=== PATIENT | male | born 1980 | race Caucasian/White ===

== ENCOUNTER 2019-07-03 18:57 | Outpatient (REF) | payer BC, SELFPAY ==
[2019-07-03 20:34] LABS: ALT 30 U/L (16-63); AST 32 U/L (15-37); Albumin 4.2 g/dL (3.4-5.0); Alkaline Phosphatase 64 U/L (46-116); Anion Gap 12.1 mmol/L (3-11); BUN 10 mg/dL (7-18); Bilirubin, Total 0.5 mg/dL (0.2-1.0); CO2 24.9 mmol/L (21.0-32.0); CREATININE 1.04 mg/dL (0.70-1.30); Calcium 9.3 mg/dL (8.5-10.1); Calculated LDL 84 mg/dL; Chloride 106 mmol/L (98-107); Cholesterol 183 mg/dL (50-200); Glucose 89 mg/dL (70-100); HDL Cholesterol 91 mg/dL (40-60); Potassium 4.3 mmol/L (3.5-5.1); Sodium 143 mmol/L (136-145); Triglyceride 40 mg/dL (30-150)
== END 2019-07-03 19:17 ==
LOC: NCHCN 18:57
PROVIDERS: PCP Physician Assistant Medical; Visit Provider Physician Assistant Medical
DX: E10.9 Type 1 diabetes mellitus without complications (principal)
CPT/HCPCS: 80053; 80061

== ENCOUNTER 2020-06-12 14:22 | Outpatient (REF) | payer BC, SELFPAY ==
[2020-06-16 04:39] LABS: Patient Race White; SARS-CoV-2 RNA Undetected (Undetected); SARS-CoV-2 Specimen Source Nasopharynx
== END 2020-06-12 14:42 ==
LOC: NCHCN 14:22
PROVIDERS: PCP Physician Assistant Medical; Visit Provider Physician Assistant Medical
DX: R50.9 Fever, unspecified (principal)
CPT/HCPCS: U0003

== ENCOUNTER 2020-08-05 17:39 | Outpatient (REF) | payer BC, SELFPAY ==
[2020-08-05 21:19] LABS: ALT 26 U/L (16-63); AST 22 U/L (15-37); Albumin 3.9 g/dL (3.4-5.0); Alkaline Phosphatase 65 U/L (46-116); Anion Gap 8.3 mmol/L (3-11); BUN 15 mg/dL (7-18); Bilirubin, Total 0.4 mg/dL (0.2-1.0); CO2 24.7 mmol/L (21.0-32.0); Calcium 8.9 mg/dL (8.5-10.1); Calculated LDL 126 mg/dL (<100); Chloride 107 mmol/L (98-107); Cholesterol 210 mg/dL (<200); Glucose 149 mg/dL (74-106); HDL Cholesterol 75 mg/dL (40-60); Potassium 4.5 mmol/L (3.5-5.1); Sodium 140 mmol/L (136-145); Total Protein 6.8 g/dL (6.4-8.2); Triglyceride 46 mg/dL (<150)
== END 2020-08-05 17:59 ==
LOC: NCHCN 17:39
PROVIDERS: PCP Physician Assistant Medical; Visit Provider Physician Assistant Medical
DX: E10.9 Type 1 diabetes mellitus without complications (principal)
CPT/HCPCS: 80053; 80061; 83036

== ENCOUNTER 2021-06-16 19:11 | Outpatient (REF) | payer BC, SELFPAY ==
[2021-06-16 21:13] LABS: Hemoglobin A1C 7.3 % (<5.7)
[2021-06-16 21:17] LABS: ALT 21 U/L (16-63); AST 17 U/L (15-37); Alkaline Phosphatase 65 U/L (46-116); Anion Gap 9.1 mmol/L (3-11); BUN 14 mg/dL (7-18); Bilirubin, Total 0.6 mg/dL (0.2-1.0); CO2 26.9 mmol/L (21.0-32.0); Calcium 9.2 mg/dL (8.5-10.1); Calculated LDL 124 mg/dL (<100); Chloride 104 mmol/L (98-107); Cholesterol 204 mg/dL (<200); Glucose 133 mg/dL (74-106); HDL Cholesterol 69 mg/dL (40-60); Potassium 4.4 mmol/L (3.5-5.1); Sodium 140 mmol/L (136-145); Triglyceride 59 mg/dL (<150)
== END 2021-06-16 19:12 | disposition home or self-care (01) ==
LOC: NCHCN 19:11
PROVIDERS: PCP Physician Assistant Medical; Visit Provider Physician Assistant Medical
DX: E10.9 Type 1 diabetes mellitus without complications (principal)
CPT/HCPCS: 80053; 80061; 83036

== ENCOUNTER 2022-05-18 21:41 | Outpatient (REF) | payer BC, SELFPAY ==
[2022-05-18 19:55] LABS: Anion Gap 7.1 mmol/L (3-11); BUN 11 mg/dL (7-18); CO2 27.9 mmol/L (21.0-32.0); CREATININE 1.1 mg/dL (0.70-1.30); Chloride 103 mmol/L (98-107); Estimated GFR 84.89 (mL/min/1.73m2); Glucose 127 mg/dL (74-106); Potassium 4.6 mmol/L (3.5-5.1); Sodium 138 mmol/L (136-145)
[2022-05-18 20:12] LABS: Hemoglobin A1C 6.9 % (<5.7)
== END 2022-05-18 21:42 | disposition home or self-care (01) ==
LOC: NCHCN 21:41
PROVIDERS: PCP Physician Assistant Medical; Visit Provider Physician Assistant Medical
DX: E10.9 Type 1 diabetes mellitus without complications (principal)
CPT/HCPCS: 80048; 83036

== ENCOUNTER 2023-02-22 18:23 | Outpatient (REF) | payer BC, SELFPAY ==
[2023-02-22 20:10] LABS: Hemoglobin A1C 6.7 % (<5.7)
[2023-02-22 20:18] LABS: ALT 24 U/L (16-63); AST 18 U/L (15-37); Albumin 3.9 g/dL (3.4-5.0); Alkaline Phosphatase 83 U/L (46-116); Anion Gap 7.2 mmol/L (3-11); BUN 15 mg/dL (7-18); Bilirubin, Total 0.3 mg/dL (0.2-1.0); CO2 27.8 mmol/L (21.0-32.0); CREATININE 0.9 mg/dL (0.70-1.30); Calcium 9.1 mg/dL (8.5-10.1); Calculated LDL 110 mg/dL (<100); Chloride 108 mmol/L (98-107); Cholesterol 198 mg/dL (<200); Estimated GFR 107.33 (mL/min/1.73m2); Glucose 111 mg/dL (74-106); HDL Cholesterol 67 mg/dL (40-60); Potassium 4.3 mmol/L (3.5-5.1); Sodium 143 mmol/L (136-145); Triglyceride 109 mg/dL (<150)
== END 2023-02-22 18:24 | disposition home or self-care (01) ==
LOC: NCHCN 18:23
PROVIDERS: PCP Physician Assistant Medical; Visit Provider Physician Assistant Medical
DX: E10.9 Type 1 diabetes mellitus without complications (principal)
CPT/HCPCS: 80053; 80061; 83036

== ENCOUNTER 2023-06-23 10:36 | Emergency (ER) | payer SELFPAY ==
[2023-06-23 10:38] VITALS: BP 134/82; PULSE 60; TEMP 36.7; O2SAT 99
[2023-06-23] MEDS: Lidocaine/Epinephri/Tetracaine Topical Gel 3 ML TP (12:45)
[2023-06-23] MEDS: Cephalexin 500 MG CAP PO (12:52)
--- NOTE | 2023-06-23 16:32 | ED.GENADUL_ITS ---
Discharge Plan Disposition Patient Disposition: Home Condition: Stable Discharge Details Clinical Impression: Laceration of hand, left Primary Care Provider: Rosaura Cardona ED Provider: Kylah Butt Home Meds and New Rx's Prescriptions: New cephalexin 500 mg tablet 500 mg PO BID Qty: 5 0RF Continued insulin glargine [Lantus Solostar U-100 Insulin] 100 unit/mL (3 mL) insulin pen 17 unit subcut QAM insulin lispro [Humalog U-100 Insulin] 100 unit/mL solution 1 sliding scale dose subcut USEASDIRECTD Discharge Instructions Instructions: Laceration (ED) Additional Instructions: Follow-up with your doctor or return to the ER for suture removal in 10 to 14 days. Keep sterile dressing intact and monitor for signs of infection including increased warmth, drainage, pain, redness or swelling. If you notice any weakness in your hand, please follow-up with your doctor immediately. Please contact your primary care physician to arrange follow-up. Return to the ER immediately for any worsening or new concerning symptoms. Referrals: Rosaura Cardona PA [Primary Care Provider] - Discharge Data Discharge Date/Time-TO BE ENTERED AT DEPARTURE: 06/23/23 15:18 Medical Decision Making 43-year-old male presents to the ER with chief complaint of dorsal left hand laceration which occurred prior to arrival. He was installing a baseboard heating and cut his hand on some metal. He is unsure when his last tetanus vaccination was. Bleeding is controlled upon arrival. He has approximately 4 cm linear laceration. Intact range of motion distal sensation intact on my initial exam. No other associated symptoms or concerns. Laceration repaired by Dr. Lawrence. Tetanus ordered, let applied. Please see his progress procedure note. Patient discharged by Dr. Lawrence after laceration repair. HPI General Mode of arrival: ambulatory . Date/Time Provider Initiated Documentation: 06/23/23 11:29 . Limitations to Documentation: no limitations . Information obtained by: patient, RN notes reviewed and old records reviewed . HPI Narrative: 43-year-old male presents to the ER with chief complaint of dorsal left hand laceration which occurred prior to arrival. He was installing a baseboard heating element and cut his hand on some metal. He is unsure when his last tetanus vaccination was. Bleeding is controlled upon arrival. He has approximately 4 cm linear laceration. Intact range of motion distal sensation intact on my initial exam. No other associated symptoms or concerns. Related Data Home Medications Medication Instructions Recorded Confirmed cephalexin 500 mg tablet 500 mg PO BID #5 tabs 06/23/23 insulin glargine 100 unit/mL (3 17 unit subcut QAM 06/23/23 06/23/23 mL) subcutaneous pen (Lantus Solostar U-100 Insulin) insulin lispro 100 unit/mL 1 sliding scale dose subcut 06/23/23 06/23/23 subcutaneous solution (Humalog USEASDIRECTD U-100 Insulin) Previous Rx's Medication Instructions Recorded cephalexin 500 mg tablet 500 mg PO BID #5 tabs 06/23/23 Allergies Allergy/AdvReac Type Severity Reaction Status Date / Time No Known Allergies Allergy Unverified 06/23/23 10:44 General Stated Complaint: Laceration HARRIET: 3 Review of Systems Integumentary/Breasts Skin/Breast: Reports as per HPI and Reports wounds (Laceration left hand) PFSH All Active Problems Laceration of hand, left (Acute) Social History Smoking/Tobacco Use Status: Never Smoking risk assessment performed?: Yes Alcohol Intake: current Alcohol Intake frequency: a few times a week Alcohol type: beer Drug use: Never Substance use type: does not use Housing: house Do you feel safe at home: Yes Do you feel safe in your relationship?: Yes Exam Extrem Left upper extremity: hand Details: laceration (Dorsum left hand, bleeding controlled) Hand/finger images: 2 1. Approximately 4 cm linear laceration noted to dorsum of left hand. Superficial, includes facia. Distal CMS intact. Course Vital Signs Vital signs: Vital Signs Temperature 36.7 C 06/23/23 10:38 Pulse 60 06/23/23 10:38 Blood Pressure 134/82 06/23/23 10:38 Pulse Oximetry 99 06/23/23 10:38 Temperature 36.7 C 06/23/23 10:38 Temperature Source Temporal Artery Scan 06/23/23 10:38 Pulse 60 06/23/23 10:38 Respiratory Effort Normal 06/23/23 10:42 Blood Pressure 134/82 06/23/23 10:38 Blood Pressure Position Sitting 06/23/23 10:38 Pulse Oximetry 99 06/23/23 10:38 Oxygen Delivery Method Room Air 06/23/23 10:38 Oxygen Flow Rate 0 06/23/23 10:38 Pain Level 2 06/23/23 10:38 PAWSS Have you Been Recently Intoxicated or Drunk Within the Last 30 days?: No Have you Ever Experienced Previous Episodes of Alcohol Withdrawal?: No Have you ever Experienced Withdrawal Seizures?: No Have you ever Experienced Delirium Tremens(DT)s?: No Have you ever undergone Alcohol Rehabilitation Treatment (i.e, inpt ot outpatient treatment programs)?: No Have you ever Experienced Blackouts?: No Have you ever Combined Alcohol with other Downers within the last 90 days?: No Have you ever Combined Alcohol with any other Substance of Abuse during the last 90 days?: No Result: 0
== END 2023-06-23 15:18 | disposition home or self-care (01) ==
PROVIDERS: Emergency Provider Registered Nurse Emergency; PCP Physician Assistant Medical
DX: S61.412A Laceration without foreign body of left hand, initial encounter (principal); X58.XXXA Exposure to other specified factors, initial encounter
CPT/HCPCS: 90471; 99284

== ENCOUNTER 2024-02-21 17:20 | Outpatient (REF) | payer BC, SELFPAY ==
[2024-02-21 20:22] LABS: ALT 28 U/L (16-63); AST 24 U/L (15-37); Albumin 3.5 g/dL (3.4-5.0); Alkaline Phosphatase 74 U/L (46-116); Anion Gap 6.3 mmol/L (3-11); BUN 10 mg/dL (7-18); C-Reactive Protein 0.74 mg/dL (<or=0.5); CO2 26.7 mmol/L (21.0-32.0); CREATININE 0.9 mg/dL (0.70-1.30); Calcium 8.6 mg/dL (8.5-10.1); Chloride 107 mmol/L (98-107); Estimated GFR 106.67 (mL/min/1.73m2); Glucose 119 mg/dL (74-106); Potassium 4.7 mmol/L (3.5-5.1); Sodium 140 mmol/L (136-145); Total Protein 6.8 g/dL (6.4-8.2); Uric Acid 2.9 mg/dL (3.5-7.2)
[2024-02-21 20:34] LABS: Calculated LDL 102 mg/dL (<100); Cholesterol 186 mg/dL (<200); HDL Cholesterol 74 mg/dL (40-60); Triglyceride 53 mg/dL (<150)
== END 2024-02-21 17:21 | disposition home or self-care (01) ==
LOC: NCHCN 17:20
PROVIDERS: PCP Physician Assistant Medical; Visit Provider Physician Assistant Medical
DX: E10.9 Type 1 diabetes mellitus without complications (principal); M25.561 Pain in right knee; R79.82 Elevated C-reactive protein (CRP)
CPT/HCPCS: 80053; 80061; 84550; 86140

== ENCOUNTER 2025-07-02 18:38 | Outpatient (REF) | payer BC, SELFPAY ==
[2025-07-02 21:38] LABS: ALT 23 U/L (16-63); AST 22 U/L (15-37); Albumin 3.7 g/dL (3.4-5.0); Alkaline Phosphatase 66 U/L (46-116); Anion Gap 9.0 mmol/L (3-11); BUN 12 mg/dL (7-18); Bilirubin, Total 0.4 mg/dL (0.2-1.0); CO2 24.0 mmol/L (21.0-32.0); Calcium 8.9 mg/dL (8.5-10.1); Calculated LDL 122 mg/dL (<100); Chloride 105 mmol/L (98-107); Cholesterol 213 mg/dL (<200); Estimated GFR 106.01 (mL/min/1.73m2); Glucose 122 mg/dL (74-106); HDL Cholesterol 74 mg/dL (>or=40); Potassium 4.1 mmol/L (3.5-5.1); Sodium 138 mmol/L (136-145); Total Protein 7.1 g/dL (6.4-8.2); Triglyceride 89 mg/dL (<150)
[2025-07-02 21:51] LABS: COMMENT (LAB VIEW ONLY) 128.28 mg/dL; Microalb ug/mg Crea 3.0 ug/mg Cr
[2025-07-02 21:54] LABS: Hemoglobin A1C 7.3 % (<5.7)
== END 2025-07-02 18:39 | disposition home or self-care (01) ==
LOC: NCHCN 18:38
PROVIDERS: PCP Physician Assistant Medical; Visit Provider Physician Assistant Medical
DX: E10.9 Type 1 diabetes mellitus without complications (principal)
CPT/HCPCS: 80053; 80061; 82043; 82570; 83036